=== PATIENT | male | born 2000 | race Two or more races ===

== ENCOUNTER 2022-05-22 09:43 | Emergency (ER) | payer MEDICAID, OTHER ==
[~2022-05-22] VITALS: Ht 177.8 cm; Wt 58.8 kg
[2022-05-22 10:26] VITALS: BP 129/70
[2022-05-22] MEDS ORDERED: NAPR500T31 PO (10:30)
[2022-05-22] MEDS ORDERED: CEPH-510 PO (10:30)
== END 2022-05-22 10:41 | disposition home or self-care (01) ==
LOC: ER 09:43
DX: T22.212A Burn of second degree of left forearm, initial encounter (principal); X08.8XXA Exposure to other specified smoke, fire and flames, initial encounter; Y93.89 Activity, other specified; Y92.89 Other specified places as the place of occurrence of the external cause; Y99.8 Other external cause status
CPT/HCPCS: 16020

== ENCOUNTER 2024-05-08 23:45 | Emergency (ER) | payer MEDICAID ==
[~2024-05-08] VITALS: Ht 180.3 cm; Wt 57.8 kg
[~2024-05-08 23:45] MED LIST: CEPH-510 PO; NAPR-746 PO
[2024-05-09 02:03] VITALS: PULSE 75; RESP 16; O2SAT 99
[2024-05-09 03:05] VITALS: BP 105/67; PULSE 65; RESP 18; TEMP 98.4; O2SAT 98
[2024-05-09] MEDS: KETOROLAC TROMETH 60MG/2ML VIAL IM ONE (03:07)
[2024-05-09] MEDS ORDERED: METH-1181 PO (04:24)
[2024-05-09] MEDS ORDERED: IBUP-1455 PO (04:24)
== END 2024-05-09 04:38 | disposition home or self-care (01) ==
LOC: ER 23:45
DX: S29.012A Strain of muscle and tendon of back wall of thorax, initial encounter (principal); X50.0XXA Overexertion from strenuous movement or load, initial encounter; Y93.89 Activity, other specified; Y92.89 Other specified places as the place of occurrence of the external cause; Y99.8 Other external cause status
CPT/HCPCS: 72070; 96372; 99283; J1885